=== PATIENT | male | born 1970 | race Caucasian/White ===

== ENCOUNTER 2021-06-17 18:43 | Emergency (ER) | payer OTHER, SELFPAY ==
--- NOTE | ~2021-06-17 | XR_ITS ---
EXAMINATION: XR foot LT min 3V DATE: 06/17/2021 19:10 INDICATION: Right foot pain, initial encounter TECHNIQUE: Dorsoplantar, lateral, and 2 oblique views of the left foot were obtained. COMPARISON: None. FINDINGS: Subtle heterotopic ossification is seen distal to the fibula, consistent with avulsion inju ry as described on the ankle radiographs. There is a heterotopic calcification projecting dorsal to t he mid tarsals on an oblique view. The joint spaces are normal. There is soft tissue swelling of the foot and ankle. IMPRESSION: 1. Possible dorsal avulsion injury of the mid tarsals. Reviewed, dictated and finalized at location F.
--- NOTE | ~2021-06-17 | XR_ITS ---
EXAMINATION: XR ankle LT min 3V DATE: 06/17/2021 19:09 INDICATION: Left ankle pain, initial encounter TECHNIQUE: Anteroposterior, lateral, mortise, and additional oblique view of the ankle were obtained. COMPARISON: None. FINDINGS: There is a subtle transverse lucency of the distal fibula at the level of the tibial plafon d. An area of heterotopic ossification projects distal to the fibula and lateral to the talus. There is soft tissue swelling of ankle. IMPRESSION: 1. Findings consistent with avulsion injury of the ankle, possibly from the distal fibula or lateral talus. 2. Possible nondisplaced transverse fracture of the distal fibula at the level of the tibial plafond. Reviewed, dictated and finalized at location F. IMPRESSION: 1. Findings consistent with avulsion injury of the ankle, possibly from the dis jennifer fibula or lateral talus. 2. Possible nondisplaced transverse fracture of the distal fibula at the level of the tibial plafond.
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
[2021-06-17 18:57] VITALS: BP 145/96; PULSE 94; RESP 16; TEMP 37.7; O2SAT 99
== END 2021-06-17 20:10 | disposition home or self-care (01) ==
PROVIDERS: Emergency Provider Nurse Practitioner Family
DX: S92.302A Fracture of unspecified metatarsal bone(s), left foot, initial encounter for closed fracture (principal); S82.832A Other fracture of upper and lower end of left fibula, initial encounter for closed fracture; V86.05XA Driver of 3- or 4- wheeled all-terrain vehicle (ATV) injured in traffic accident, initial encounter; I10 Essential (primary) hypertension
CPT/HCPCS: 29515; 73610; 73630; 99214; G0463